=== PATIENT | male | born 1960 | race African-American/Black ===

== ENCOUNTER 2024-12-26 09:21 | Emergency (ER) | payer MEDICAID ==
[~2024-12-26] VITALS: Ht 182.9 cm; Wt 73.0 kg
[2024-12-26 09:24] VITALS: BP 91/69; PULSE 102; RESP 18; TEMP 36.7; O2SAT 100
[2024-12-26 10:57] LABS: CLARITY URINE TURBID (CLEAR); COLOR URINE ORANGE (YELLOW); GLUCOSE URINE NEGATIVE (NEGATIVE); KETONES URINE NEGATIVE (NEGATIVE); LEUKOCYTE ESTERASE URINE 3+ (NEGATIVE); NITRITE URINE POSITIVE (NEGATIVE); OCCULT BLOOD URINE 3+ (NEGATIVE); PROTEIN URINE 2+ (NEGATIVE); SPECIFIC GRAVITY URINE 1.027 (1.005-1.030)
[2024-12-26 11:44] LABS: TRIPLE PHOSPHATE CRYSTAL URINE 3+ /lpf
[2024-12-26 11:45] LABS: BACTERIA URINE 4+; SQUAMOUS EPITHELIAL CELL URINE NONE SEEN /lpf (RARE/1+)
[2024-12-26 11:46] LABS: RBC URINE 25-50 /hpf (0-2); WBC URINE TNTC /hpf (0-2)
[2024-12-26] MEDS ORDERED: LEVO-65 PO (11:57)
== END 2024-12-26 15:11 | disposition home or self-care (01) ==
LOC: ER 09:38
DX: N39.0 Urinary tract infection, site not specified (principal); N40.0 Benign prostatic hyperplasia without lower urinary tract symptoms
CPT/HCPCS: 81003; 87186; 99283